=== PATIENT | male | born 1960 | race Caucasian/White ===

== ENCOUNTER 2016-12-18 15:22 | Observation (INO) | payer BC, OTHER ==
[~2016-12-18] VITALS: Ht 175.3 cm; Wt 95.0 kg
[2016-12-18 15:31] VITALS: Ht 175.3 cm; Wt 95.0 kg
[2016-12-18] MEDS ORDERED: ALPR0.5T PO (17:38)
--- NOTE | 2016-12-18 18:57 | ERA ---
ER Documentation Chief Complaint Date/Time DATE: 12/18/16 TIME: 18:56 Chief Complaint BIBA FOR COLOSTOMY STOMA PROBLEM,ABDOMINAL PAIN HPI Patient is a 56-year-old male who presents with leaking of stool and mild abdominal discomfort since last night after he advanced his catheter into his Kock pouch to drain stool, and pushed the catheter into far to the point that is not able to retrieve it. Patient denies fever, vomiting. ROS All systems reviewed and are negative except as per history of present illness. Medications Home Meds Reported Medications Alprazolam* (Xanax*) 0.5 Mg Tab, 0.5 MG PO DAILY Y for ANXIETY, TAB 12/18/16 Allergies Allergies: Coded Allergies: No Known Allergy (Unverified , 12/18/16) PMhx/Soc Past medical history: Ulcerative colitis Surgical history: Total colectomy and partial small bowel obstruction with formation of Kock pouch Social history: Denies tobacco or alcohol History of Surgery: Yes (KOCK POUCH ILEOSTOMY, CERVICAL SPINE SX) Anesthesia Reaction: No Hx Neurological Disorder: No Hx Respiratory Disorders: No Hx Cardiac Disorders: No Hx Psychiatric Problems: No Hx Miscellaneous Medical Probl: No Hx Alcohol Use: Yes Hx Substance Use: No Hx Tobacco Use: Yes Smoking Status: Current some day smoker FmHx Family History: No coronary disease, No diabetes Physical Exam Vitals Vital Signs Date Time Temp Pulse Resp B/P Pulse Ox O2 Delivery O2 Flow Rate FiO2 12/18/16 19:45 83 16 123/88 98 Room Air 12/18/16 15:31 98.2 112 18 126/94 98 Physical Exam Const: Alert, no acute distress Head: Atraumatic Eyes: Normal Conjunctiva, no pallor, no icterus ENT: Normal External Ears, Nose and Mouth. Moist mucous membranes Neck: Full range of motion..~ No meningismus. Resp: Clear to auscultation bilaterally no wheezes, no rales Cardio: Regular rate and rhythm, no murmurs Abd: Soft, non tender, non distended. Stoma in right lower quadrant actively slowly leaking yellow stool Skin: No petechiae or rashes Back: No midline or flank tenderness Ext: No cyanosis, or edema Neur: Awake and alert Psych: Normal Mood and Affect Result Diagram: 5/16/17 1920 5/16/17 1920 Results 24 hrs Laboratory Tests Test 12/18/16 19:20 White Blood Count 17.910^3/ul Red Blood Count 5.1710^6/ul Hemoglobin 15.2g/dl Hematocrit 43.7% Mean Corpuscular Volume 84.5fl Mean Corpuscular Hemoglobin 29.4pg Mean Corpuscular Hemoglobin Concent 34.8g/dl Red Cell Distribution Width 15.0% Platelet Count 56711^3/UL Mean Platelet Volume 9.8fl Neutrophils % 50.0% Lymphocytes % 36.0% Monocytes % 12.0% Eosinophils % 2.0% Neutrophils # 9.010^3/ul Lymphocytes # 6.410^3/ul Monocytes # 2.110^3/ul Eosinophils # 0.410^3/ul Prothrombin Time 12.4Sec Prothrombin Time Ratio 1.0 INR International Normalized Ratio 0.92 Activated Partial Thromboplast Time 24.3Sec Sodium Level 146mmol/L Potassium Level 4.0mmol/L Chloride Level 102mmol/L Carbon Dioxide Level 29mmol/L Anion Gap 19 Blood Urea Nitrogen 19mg/dl Creatinine 1.25mg/dl Glucose Level 73mg/dl Lactic Acid Level 1.6mmol/L Calcium Level 10.0mg/dl Current Medications Medications (Trade) Dose Ordered Sig/Frances Route PRN Reason Start Time Stop Time Status Last Admin Dose Admin IV Flush (NS 3 ml) 3 ml PER PROTOCOL IV 12/18/16 20:00 Ondansetron HCl (Zofran Inj) 4 mg Q6H PRN IV NAUSEA AND/OR VOMITING 12/18/16 20:00 Acetaminophen (Tylenol Tab) 650 mg Q6H PRN PO PAIN LEVEL 1-3 OR FEVER 12/18/16 20:00 Morphine Sulfate (morphine) 2 mg Q4H PRN IV SEVERE PAIN LEVEL 7-10 12/18/16 20:00 12/18/16 20:23 Docusate Sodium (Colace) 100 mg Q12H PRN PO CONSTIPATION 12/18/16 20:00 Magnesium Hydroxide (Milk Of Mag) 30 ml DAILY PRN PO CONSTIPATION 12/18/16 20:00 Bisacodyl (Dulcolax Supp) 10 mg DAILY PRN DE CONSTIPATION 12/18/16 20:00 Famotidine (Pepcid Iv) 20 mg Q12 IV 12/18/16 21:00 12/18/16 20:23 Alprazolam 0.5 mg 0.5 mg DAILY PRN PO ANXIETY 12/18/16 20:00 Sodium Chloride 500 ml @ 500 mls/hr Q1H ONCE IV 12/18/16 20:00 12/18/16 20:59 DC 12/18/16 20:23 Sodium Chloride (NS) 1,000 ml @ 100 mls/hr Q10H IV 12/18/16 20:00 12/18/16 20:24 Procedures/MDM MDM: Patient is a 56-year-old male with a intestinal pouch with stoma. He accidentally advanced the catheter into the stoma and is unable to pull it out. I am unable to see or feel the catheter inside the stoma on exam. I discussed the case with Dr. Jacobs, and he recommended GI consultation to scope the pouch and remove the catheter. I discussed the case with Dr. Mcknight, gastroenterology, who recommended admitting the patient and plans to scope the patient tomorrow. The patient has a benign abdominal exam and no evidence of bleeding from the stoma. I have very low suspicion for perforation of the stoma or other complication at this time. An attempt made to place a colostomy bag over the leaking stoma. Patient does have leukocytosis, but this is a nonspecific finding and not clearly related to the history. Departure Diagnosis: Primary Impression: Retained foreign body Additional Impression: Complications of intestinal pouch Condition: Stable JUAN FRANCISCO CAPUTO MD December 18, 2016 18:57 JUAN FRANCISCO CAPUTO MD December 18, 2016 18:57
[2016-12-18 19:29] LABS: ADD SCAN DIFF NO
[2016-12-18 19:32] LABS: ABNORMAL IP MESSAGE 1; HEMATOCRIT 43.7 % (42.0-52.0); HEMOGLOBIN 15.2 g/dl (14.0-18.0); MEAN CORPUSCULAR HEMOGLOBIN 29.4 pg (29.0-33.0); MEAN CORPUSCULAR HGB CONC 34.8 g/dl (32.0-37.0); MEAN CORPUSCULAR VOLUME 84.5 fl (82.0-101.0); MEAN PLATELET VOLUME 9.8 fl (7.4-10.4); PLATELET COUNT 338 10^3/UL (140-415); RED BLOOD COUNT 5.17 10^6/ul (4.70-6.10); WHITE BLOOD COUNT 17.9 10^3/ul (4.8-10.8)
[2016-12-18 19:49] LABS: INR 0.92; PROTIME 12.4 Sec (12.2-14.2)
[2016-12-18 19:52] LABS: CREATININE 1.25 mg/dl (0.61-1.24)
[2016-12-18 20:00] LABS: EOSINOPHILS # 0.4 10^3/ul (0.0-0.5); LYMPHOCYTES # 6.4 10^3/ul (0.8-2.9); MONOCYTE # 2.1 10^3/ul (0.3-0.9)
[2016-12-18] MEDS ORDERED: SOD CHLORIDE 0.9% 500 ML IV ONE (20:00)
[2016-12-18] MEDS ORDERED: ONDANSETRON 4 MG INJ IV PRN ×2 (20:00→21:30)
[2016-12-18] MEDS ORDERED: BISACODYL 10 MG SUPP PR PRN (20:00)
[2016-12-18] MEDS ORDERED: DOCUSATE SODIUM 100 MG CAP PO PRN (20:00)
[2016-12-18] MEDS ORDERED: ACETAMINOPHEN 325 MG TAB PO PRN ×2 (20:00→21:30)
[2016-12-18] MEDS ORDERED: NACL 0.9% 3 ML SYG IV SCH (20:00)
[2016-12-18] MEDS ORDERED: MAGNESIUM HYDROXIDE 30ML CUP PO PRN (20:00)
[2016-12-18] MEDS: FAMOTIDINE 20 MG INJ IV SCH (20:23)
[2016-12-18] MEDS: morphine 2 MG INJ IV PRN (20:23)
[2016-12-18] MEDS: SOD CHLORIDE 0.9% 1,000 ML IV SCH (20:24)
[2016-12-18 21:37] VITALS: TEMP 98.2
[2016-12-18 22:32] VITALS: BP 139/90; RESP 18
[2016-12-19] VITALS (12 sets, daily range): BP systolic 122–141; BP diastolic 68–94; PULSE 106–114; RESP 19–25
[2016-12-19] MEDS: ALPRAZOLAM 0.25 MG TAB PO PRN ×2 (00:18→21:24)
[2016-12-19 05:14] LABS: ADD SCAN DIFF NO
[2016-12-19 05:24] LABS: ABNORMAL IP MESSAGE 1; BASOPHIL # 0.1 10^3/ul (0.0-0.1); BASOPHILS % 0.2 % (0.0-2.0); EOSINOPHILS # 0.4 10^3/ul (0.0-0.5); HEMOGLOBIN 14.8 g/dl (14.0-18.0); LYMPHOCYTES % 18.7 % (15.0-51.0); MEAN CORPUSCULAR HEMOGLOBIN 29.4 pg (29.0-33.0); MEAN CORPUSCULAR HGB CONC 35.2 g/dl (32.0-37.0); MEAN CORPUSCULAR VOLUME 83.3 fl (82.0-101.0); MEAN PLATELET VOLUME 10.2 fl (7.4-10.4); MONOCYTE # 1.8 10^3/ul (0.3-0.9); MONOCYTES % 8.5 % (0.0-11.0); NEUTROPHIL # 14.8 10^3/ul (1.6-7.5); NEUTROPHILS % 70.2 % (39.0-77.0); PLATELET COUNT 365 10^3/UL (140-415); RED BLOOD COUNT 5.04 10^6/ul (4.70-6.10); RED CELL DISTRIBUTION WIDTH 14.9 % (11.5-14.5); WHITE BLOOD COUNT 21.1 10^3/ul (4.8-10.8)
[2016-12-19 05:34] LABS: MAGNESIUM 1.8 mg/dl (1.7-2.5); PHOSPHORUS 3.6 mg/dl (2.5-4.9)
[2016-12-19 05:42] LABS: ALBUMIN 4.1 g/dl (3.3-4.9); ALBUMIN/GLOBULIN RATIO 1.24; BILIRUBIN,INDIRECT 0.8 mg/dl (0-1.1); BILIRUBIN,TOTAL 0.8 mg/dl (0.2-1.3); CALCIUM 9.7 mg/dl (8.4-10.2); CREATININE 0.94 mg/dl (0.61-1.24); POTASSIUM 3.9 mmol/L (3.5-5.1); TOTAL PROTEIN 7.4 g/dl (6.1-8.1)
[2016-12-19] MEDS: SOD CHLORIDE 0.9% 1,000 ML IV SCH ×3 (05:59→23:41)
[2016-12-19] MEDS: morphine 2 MG INJ IV PRN ×2 (06:04→09:56)
[2016-12-19] MEDS ORDERED: LIDOCAINE 2% (SDV) 5 ML INJ ONE (07:00)
[2016-12-19] MEDS: FAMOTIDINE 20 MG INJ IV SCH ×2 (09:56→21:24)
[2016-12-19] MEDS ORDERED: BARIUM SULF 2% 450 ML BTL (BERRY SMOOTHIE) PO ONE (12:30)
--- NOTE | 2016-12-19 13:31 | RADRPT ---
PROCEDURE: CT abdomen and pelvis without contrast and with 3-D reconstructions CLINICAL INDICATION: leaking stool TECHNIQUE: CT scan of the abdomen and pelvis without contrast was performed on a multislice [facility]. 3-D sagittal and coronal reformatted images were obtained from the axial source images. DLP 980.57 mGycm CTDIvol 14.68 mGy COMPARISON: None. FINDINGS: The visualized lung bases demonstrate subsegmental bibasilar atelectasis. The liver is homogenous in attenuation. There are no focal liver lesions. There is no intrahepatic or extrahepatic biliary ductal dilatation. The gallbladder is within normal limits. The spleen, pancreas, and adrenal glands are within normal limits. The kidneys are symmetric and without focal lesions. There are no renal calculi. There is no obstruc tive uropathy. The patient is noted to be status post total colectomy with a right lower quadrant ileostomy. There are multiple dilated loops of small bowel with gradually increased dilatation towards the distal il eum which measures up to 8.5 cm in diameter. A catheter or tubing is noted in the dilated distal il eum approximately 5 cm from the ileostomy site. There is a round 3 cm focus of mesenteric fat which is noted to herniate extrinsically into the distal ileum, just proximal to the ileostomy which may be narrowing the outflow. Surrounding adjacent surgical clips are noted. The aorta is within normal limits. There are no enlarged mesenteric, periaortic, or retroperitoneal lymph nodes. The bladder is within normal limits. There is no free air. There is no free fluid. There are no enlarged intrapelvic or inguinal lymph nodes. A midline abdominal wound is noted. IMPRESSION: Status post total colectomy with a right lower quadrant ileostomy. There is a catheter or tubing wi thin the distal ileum as well as a 3 cm focus of mesenteric fat which is extrinsically pushing into the dilated distal ileum, both of which may be causing outlet obstruction. Markedly dilated loops of bowel measuring up to 8.5 cm in the distal ileum without a transition poin t. No evidence of bowel perforation. These findings were discussed with Debbie Vila over the phone on 12/19/2016 at 1:31 PM . RPTAT: EE Jean Roberts Physician Date Time Electronically viewed and signed by Jean Roberts Physician on 12/19/2016 13:31 RA/
--- NOTE | 2016-12-19 13:34 | CONS ---
Date/Time of Note Date/Time of Note DATE: 12/19/16 TIME: 13:19 Assessment/Plan Assessment/Plan Additional Assessment/Plan Assessment * Foreign body (catheter) ileostomy * History of Proctocolectomy Kochs ileostomy Ulcerative colitis Plan * CT abdomen /pelvis * schedule for removal of foreign body risks and benefit explained to patient agreed with planned procedure * NPO Consultation Date/Type/Reason Admit Date/Time December 18, 2016 at 21:05 Date of Consultation: December 19, 2016 Type of Consultation: Gastroenterology Reason for Consultation foreign body per ileostomy Referring Provider: AVA BURROUGHS Hx of Present Illness 56 year old male with past medical history of ulcerative colitis,underwent proctocolectomy with Kochs pouch ileostomy 35 years ago,spinal surgery who came to our clinic with chief complaint of retained foreign body catheter 1 day duration.Patient has been draining his ileostomy through catheter when he accidentally pushed the catheter too far and unable to retrieve it.No associated nausea , vomiting of fever but claimed of vague abdominal pain. Emergency room course ,patient has leukocytosis WBC 17.9,Hemoglobin 15.2.hematocrit 43.7.we are awaiting CT abdomen results Constitutional: no complaints Eyes: no complaints ENT: no complaints Respiratory: no complaints Cardiovascular: no complaints Gastrointestinal: flatus, nausea, pain Genitourinary: no complaints Musculoskeletal: no complaints Skin: no complaints Neurologic: no complaints Endocrine: no complaints Lymphatic: no complaints Psychological: nl mood/affect, no complaints Immunologic: no complaints Past Medical History Medical History: other (ulceratve colitis) Past Surgical History Past Surgical Hx: other (proctocolectomy with pouch ileostomy) Family History Significant Family History: no pertinent family hx Social History Smoking Status: Light tobacco smoker Drug Use: other (methaamphethamine) Exam/Review of Systems Vital Signs Vitals Vital Signs Date Time Temp Pulse Resp B/P Pulse Ox O2 Delivery O2 Flow Rate FiO2 12/19/16 07:00 96.9 100 19 125/83 93 12/18/16 22:32 Room Air Intake and Output 12/18/16 12/18/16 12/19/16 15:00 23:00 07:00 Intake Total 1400 ml Output Total 700 ml Balance 700 ml Exam Constitutional: alert, oriented, well developed Head: atraumatic, normocephalic Eyes: PERRL, nl lids, nl sclera ENMT: nl nasal mucosa & septum Neck: non-tender, supple Respiratory: clear to auscultation, normal air movement Cardiovascular: nl pulses, regular rate and rhythm Gastrointestinal: bowel sounds, nl liver, spleen, soft, tender Musculoskeletal: nl extremities to inspection, nl gait and stance Extremities: normal pulses Neurological: ENGINEERING ANALYST II-XII intact, nl mental status, nl speech, nl strength Skin: nl turgor, No rash or lesions Lymph: nl lymph nodes Results Result Diagram: 12/19/16 0435 12/19/16 0435 Results 24 hrs Laboratory Tests Test 12/18/16 19:20 12/19/16 04:35 White Blood Count 17.9 H 21.1 H Red Blood Count 5.17 5.04 Hemoglobin 15.2 14.8 Hematocrit 43.7 42.0 Mean Corpuscular Volume 84.5 83.3 Mean Corpuscular Hemoglobin 29.4 29.4 Mean Corpuscular Hemoglobin Concent 34.8 35.2 Red Cell Distribution Width 15.0 H 14.9 H Platelet Count 338 365 Mean Platelet Volume 9.8 10.2 Neutrophils % 50.0 70.2 Lymphocytes % 36.0 18.7 Monocytes % 12.0 H 8.5 Eosinophils % 2.0 2.0 Neutrophils # 9.0 H 14.8 H Lymphocytes # 6.4 H 4.0 H Monocytes # 2.1 H 1.8 H Eosinophils # 0.4 0.4 Prothrombin Time 12.4 Prothrombin Time Ratio 1.0 INR International Normalized Ratio 0.92 Activated Partial Thromboplast Time 24.3 L Sodium Level 146 H 142 Potassium Level 4.0 3.9 Chloride Level 102 107 Carbon Dioxide Level 29 24 Anion Gap 19 H 15 Blood Urea Nitrogen 19 14 Creatinine 1.25 H 0.94 Glucose Level 73 119 # Lactic Acid Level 1.6 Calcium Level 10.0 9.7 Basophils % 0.2 Nucleated Red Blood Cells % 0.0 Basophils # 0.1 Nucleated Red Blood Cells # 0.0 Phosphorus Level 3.6 Magnesium Level 1.8 Total Bilirubin 0.8 Direct Bilirubin 0.00 Indirect Bilirubin 0.8 Aspartate Amino Transf (AST/SGOT) 31 Alanine Aminotransferase (ALT/SGPT) 40 Alkaline Phosphatase 67 Total Protein 7.4 Albumin 4.1 Globulin 3.30 H Albumin/Globulin Ratio 1.24 Medications Medications Current Medications Ondansetron HCl (Zofran Inj) 4 mg Q6H PRN IV NAUSEA AND/OR VOMITING Last administered on 12/19/16 05:58; Admin Dose 4 MG; Start 12/18/16 at 20:00 Acetaminophen (Tylenol Tab) 650 mg Q6H PRN PO PAIN LEVEL 1-3 OR FEVER; Start at 20:00 Morphine Sulfate (morphine) 2 mg Q4H PRN IV SEVERE PAIN LEVEL 7-10 Last administered on 12/19/16 09:56; Admin Dose 2 MG; Start 12/18/16 at 20:00 Docusate Sodium (Colace) 100 mg Q12H PRN PO CONSTIPATION; Start 12/18/16 at 20: 00 Magnesium Hydroxide (Milk Of Mag) 30 ml DAILY PRN PO CONSTIPATION; Start at 20:00 Bisacodyl (Dulcolax Supp) 10 mg DAILY PRN CA CONSTIPATION; Start 12/18/16 at 20 :00 Famotidine (Pepcid Iv) 20 mg Q12 IV Last administered on 12/19/16 09:56; Admin Dose 20 MG; Start 12/18/16 at 21:00 Alprazolam 0.5 mg 0.5 mg DAILY PRN PO ANXIETY Last administered on 12/19/16 00 :18; Admin Dose 0.5 MG; Start 12/18/16 at 20:00 Sodium Chloride (NS) 1,000 ml @ 100 mls/hr Q10H IV Last administered on 08:15; Admin Dose 100 MLS/HR; Start 12/18/16 at 20:00 Simethicone 160 mg 160 mg Q6H PRN PO DISTENSION/GAS/BLOATING Last administered on 12/19/16 00:27; Admin Dose 160 MG; Start 12/19/16 at 00:20 Piperacillin Sod/ Tazobactam Sod (Zosyn 3.375gm/ 100 ml (Pmx)) 100 ml @ 200 mls /hr Q8 IVPB ; Start 12/19/16 at 14:00 DAYO DESAI MD December 19, 2016 13:29
[2016-12-19] MEDS: PIPER-TAZO 3.375 GM IV (PMX) 100 ML IVPB SCH ×2 (13:58→21:27)
--- NOTE | 2016-12-19 14:16 | HP ---
DATE OF ADMISSION: 12/18/2016 PRIMARY CARE PHYSICIAN: Unknown. PREVIOUS SURGEON: Unknown. CHIEF COMPLAINT ON ADMISSION: Abdominal pain and also status post catheter manipulation of his Kock pouch. HISTORY OF PRESENT ILLNESS: This is a 56-year-old male who apparently with history of ulcerative co litis status post partial colectomy almost 25 to 30 years ago. At that point he had a Aldana pouch pe rformed. Apparently, the patient used a catheter to drain the stool pouch. Two days ago, he may davila ve pushed the catheter too far in. He has not been able to retrieve it. He did not feel any stabbi ng at that time, but he is not sure if he has not caused any injury. He has been having abdominal p ain over the past 2 days and stool leaking around the patch. Currently, a colostomy bag is placed. He is noted to have some erythema around pouch site. He reports that he has been having some diaph oresis while inpatient and also with nausea while inpatient, but he was not having it outpatient. H e denies fevers as an outpatient. In the emergency department, he was noted to have some leaking stool around it which prompted for th e colostomy bag to be placed. His white count on admission was 17,000 in the setting of dehydration . He has been rehydrated, but the white count this morning is 21,000. According to the ER zay frank, he did discuss the case with both general surgery and GI, and after discussion, GI is actually go ing to take the patient in order to retrieve this catheter in the pouch. The patient currently is f airly uncomfortable. Therefore, a CAT scan of the abdomen and pelvis is pending. Dr. Mcknight will b e evaluating the patient. I will start him on Zosyn at this point for possible cellulitis or infect ion given the elevated white count that goes along with it. The patient is on IV fluids. Of note, I am suspecting the patient may be a methamphetamine user. He did at least at first deny any drug u se, then when confronted by the nurse he admitted he used methamphetamine recreationally last a greg h ago, but at this point, I am suspicious that he may have been using it a little earlier than that, therefore he will be monitored for also withdrawal. ALLERGIES: NO KNOWN ALLERGIES. PAST MEDICAL HISTORY: History of ulcerative colitis status post partial colectomy with the Aldana darrius ch creation. PAST SURGICAL HISTORY: 1. The patient is status post colectomy and this Aldana pouch creation. 2. Apparently 10 years ago, he had a similar episode where he pushed the catheter too far and had t o be retrieved by surgery. SOCIAL HISTORY: The patient does not smoke or drink alcohol, but he is likely a methamphetamine use r and is downplaying it. OUTPATIENT MEDICATIONS: Xanax 0.5 mg p.o. daily p.r.n. anxiety. REVIEW OF SYSTEMS: As per HPI. PHYSICAL EXAMINATION: VITAL SIGNS: Temperature is 96.9, heart rate of 100, respiratory rate of 19, blood pressure 125/83. The patient is saturating 93% to 99% on room air. GENERAL: He is alert and oriented x4. He is in no acute distress. He seems flushed, however. HEENT: Pupils are equally round and reactive to light. Extraocular muscles are intact. Anicteric sclerae. NECK: No JVD, no thyromegaly noted. HEART: Regular rate and rhythm. No murmur, rubs, or gallops. LUNGS: Clear to auscultation bilaterally. ABDOMEN: He does have a pouch on his right lower quadrant area with a colostomy bag around it. He has some erythema around the pouch area, but there is no leaky stools that I can see currently. He complains of some abdominal discomfort and pain. CAT scan of the abdomen and pelvis is pending. EXTREMITIES: No edema, clubbing or cyanosis. NEUROLOGIC: Grossly intact. LABORATORY DATA: White blood cell count is 21,000 this morning, hemoglobin 14.9, hematocrit 42.0, p latelet count of 365. Chemistry with a sodium of 142, potassium 3.9, chloride 107, bicarbonate 24, BUN 14, creatinine 0.94, glucose of 119. Lactic acid 1.6, calcium 9.7, phosphorus 3.6, magnesium 1. 8. Liver function testing within normal. INR is 0.92, PT 12.4, PTT 24.3. RADIOLOGICAL DATA: CAT scan of the abdomen and pelvis is pending. ASSESSMENT AND PLAN: This is a 56-year-old male with: 1. History of ulcerative colitis, status post colectomy with Aldana pouch creation 30 years ago and s tatus post previous episode of catheter pushed inside that had to be retrieved. He is presented aga in with another similar episode today and the patient at this point will have surgery and GI will se e him for possible colonoscopy for retrieval of the catheter hopefully. Given his elevated white bl ood cell count, we will give him a dose of Zosyn today. 2. Suspected methamphetamine use. I will keep him on benzodiazepines as needed. Monitor his blood pressure. Continue IV fluids, especially while n.p.o. DISPOSITION: 1. Deep venous thrombosis prophylaxis with sequential compression devices. GI prophylaxis with Pep jessica. 2. GI consult pending and follow up on CAT scan results and general surgery on standby also if need ed. Dictated By: AVA BOB/BENJAMIN Conf#: [id number] DID#: [id number]
[2016-12-19] MEDS ORDERED: PROPOFOL 20 ML ONE (17:08)
[2016-12-19] MEDS ORDERED: MIDAZOLAM 1 MG/ML 2 ML INJ ONE ×2 (17:08→17:24)
[2016-12-19] MEDS ORDERED: FENTAnyl 50 MCG/ML VIAL ONE (17:09)
--- NOTE | 2016-12-19 17:37 | EN ---
Date/Time of Note Date/Time of Note DATE: 12/19/16 TIME: 17:36 ER Progress Note Ultrasound-guided IV insertion note: Indication, [facility] unable to obtain vascular access. Area was cleaned with alcohol. Ultrasound guidance was used to easily introduce an 18-gauge extended Angiocath into the left basilic vein. There was good blood flow at the line flushed well. Patient tolerated procedure with her no complications. Images were saved in chart. MATTHEW GARVEY DO December 19, 2016 17:37
--- NOTE | 2016-12-19 18:24 | GILP ---
DATE OF PROCEDURE: 12/19/2016 PROCEDURE PERFORMED: Ileoscopy with foreign body removal. BRIEF HISTORY AND INDICATIONS: The patient has accidentally lost the ileostomy drainage catheter an d is unable to recover it. The ileostomy drainage catheter is in the distal ileum by CT and is lead ing to some degree of obstruction. PREMEDICATION: Monitored anesthesia care by anesthesiologist. SURGEON: Roxanna Calhoun MD. DESCRIPTION OF PROCEDURE: After informed consent with the patient understanding the procedure, its potential risks and complications as well as alternatives and after all pertinent questions were an swered to his satisfaction, the patient was placed in supine position. The patient received sedati on. Once the sedative effect was achieved, the ileostomy opening was dilated with the pinky finger and then we introduced an upper endoscope with some difficulty as there is significant narrowing in the distal portion of the ileostomy. We were able to advance into the pouch and identified the cath eter. We were able to secure the tip of the catheter with a grasping forceps, after some maneuverin g, we were able to retrieve it without difficulty. No evidence of injury or complications present. IMPRESSION: Narrowed distal ileostomy. Foreign body in the ileostomy pouch removed without difficu lty. PLAN: The patient will be restarted on diet and his usual management of ileostomy, encourage voidin g through the drainage catheter to the point of losing control. Dictated By: DAYO DESAI MS/BENJAMIN Conf#: [id number] DID#: [id number]
[2016-12-20 05:06] LABS: ADD SCAN DIFF NO
[2016-12-20 05:09] LABS: ABNORMAL IP MESSAGE 1; HEMATOCRIT 42.3 % (42.0-52.0); HEMOGLOBIN 14.9 g/dl (14.0-18.0); MEAN CORPUSCULAR HEMOGLOBIN 29.6 pg (29.0-33.0); MEAN CORPUSCULAR HGB CONC 35.2 g/dl (32.0-37.0); MEAN CORPUSCULAR VOLUME 83.9 fl (82.0-101.0); PLATELET COUNT 389 10^3/UL (140-415); RED BLOOD COUNT 5.04 10^6/ul (4.70-6.10); RED CELL DISTRIBUTION WIDTH 14.6 % (11.5-14.5); WHITE BLOOD COUNT 8.9 10^3/ul (4.8-10.8)
[2016-12-20 05:25] LABS: MAGNESIUM 1.6 mg/dl (1.7-2.5); PHOSPHORUS 3.3 mg/dl (2.5-4.9)
[2016-12-20 05:29] LABS: CALCIUM 9.3 mg/dl (8.4-10.2); CREATININE 1.11 mg/dl (0.61-1.24); POTASSIUM 4.1 mmol/L (3.5-5.1)
[2016-12-20] MEDS: PIPER-TAZO 3.375 GM IV (PMX) 100 ML IVPB SCH ×2 (05:36→13:24)
[2016-12-20 07:40] LABS: EOSINOPHILS # 0.2 10^3/ul (0.0-0.5); LYMPHOCYTES # 3.6 10^3/ul (0.8-2.9); MONOCYTE # 1.2 10^3/ul (0.3-0.9); NEUTROPHIL # 2.4 10^3/ul (1.6-7.5)
[2016-12-20] MEDS: FAMOTIDINE 20 MG INJ IV SCH (08:21)
[2016-12-20 08:25] VITALS: BP 141/88; PULSE 113; RESP 18
[2016-12-20] MEDS: SOD CHLORIDE 0.9% 1,000 ML IV SCH (11:24)
[2016-12-20] MEDS ORDERED: MAGNESIUM SULFATE 2 GM/50 ML 50 ML IVPB ONE (13:00)
--- NOTE | 2016-12-20 14:26 | PN ---
Date/Time of Note Date/Time of Note DATE: 12/20/16 TIME: 14:21 Assessment/Plan VTE Prophylaxis VTE Prophylaxis Intervention: SCD's Lines/Catheters IV Catheter Type (from Nrsg): Peripheral IV Assessment/Plan Assessment/Plan 56-year-old male with: 1. History of ulcerative colitis, status post colectomy with Aldana pouch creation 30 years ago and status post previous episode of catheter pushed inside that had to be retrieved. S/p retrieval catheter and WBC back to normal No Abdo pain and tolerating po D/c home today 2. Suspected methamphetamine use. Patient stable D/c home and he claims he will not use again DISPOSITION: D/c home today. Subjective 24 Hr Interval Summary Free Text/Dictation Patient back to baseline and tolerating po D/c home Exam/Review of Systems Vital Signs Vitals Vital Signs Date Time Temp Pulse Resp B/P Pulse Ox O2 Delivery O2 Flow Rate FiO2 12/20/16 08:25 97.3 113 18 141/88 98 Room Air Intake and Output 12/19/16 12/19/16 12/20/16 15:00 23:00 07:00 Intake Total 1000 ml 1350 ml Balance 1000 ml 1350 ml Exam Constitutional: alert, oriented, well developed Respiratory: clear to auscultation, normal air movement Cardiovascular: nl pulses, regular rate and rhythm Gastrointestinal: non-tender, other (some stool around the pouch but o/w no signs of infection anymore ), soft Musculoskeletal: nl extremities to inspection, nl gait and stance Extremities: normal pulses Neurological: OXYACETYLENE WELDER II-XII intact, nl mental status, nl speech, nl strength Results Result Diagram: 12/20/16 0435 12/20/16 0435 Results 24 hrs Laboratory Tests Test 12/20/16 04:35 White Blood Count 8.9 # Red Blood Count 5.04 Hemoglobin 14.9 Hematocrit 42.3 Mean Corpuscular Volume 83.9 Mean Corpuscular Hemoglobin 29.6 Mean Corpuscular Hemoglobin Concent 35.2 Red Cell Distribution Width 14.6 H Platelet Count 389 Mean Platelet Volume 10.0 Neutrophils % 27.0 L Band Neutrophils % 18.0 H Lymphocytes % 40.0 Monocytes % 13.0 H Eosinophils % 2.0 Neutrophils # 2.4 Lymphocytes # 3.6 H Monocytes # 1.2 H Eosinophils # 0.2 Sodium Level 143 Potassium Level 4.1 Chloride Level 110 Carbon Dioxide Level 23 Anion Gap 14 Blood Urea Nitrogen 16 Creatinine 1.11 Glucose Level 147 Calcium Level 9.3 Phosphorus Level 3.3 Magnesium Level 1.6 L Medications Medications Current Medications Ondansetron HCl (Zofran Inj) 4 mg Q6H PRN IV NAUSEA AND/OR VOMITING Last administered on 12/19/16 05:58; Admin Dose 4 MG; Start 12/18/16 at 20:00 Acetaminophen (Tylenol Tab) 650 mg Q6H PRN PO PAIN LEVEL 1-3 OR FEVER; Start at 20:00 Morphine Sulfate (morphine) 2 mg Q4H PRN IV SEVERE PAIN LEVEL 7-10 Last administered on 12/19/16 09:56; Admin Dose 2 MG; Start 12/18/16 at 20:00 Docusate Sodium (Colace) 100 mg Q12H PRN PO CONSTIPATION; Start 12/18/16 at 20: 00 Magnesium Hydroxide (Milk Of Mag) 30 ml DAILY PRN PO CONSTIPATION; Start at 20:00 Bisacodyl (Dulcolax Supp) 10 mg DAILY PRN ME CONSTIPATION; Start 12/18/16 at 20 :00 Famotidine (Pepcid Iv) 20 mg Q12 IV Last administered on 12/20/16 08:21; Admin Dose 20 MG; Start 12/18/16 at 21:00 Alprazolam 0.5 mg 0.5 mg DAILY PRN PO ANXIETY Last administered on 12/19/16 21 :24; Admin Dose 0.5 MG; Start 12/18/16 at 20:00 Sodium Chloride (NS) 1,000 ml @ 100 mls/hr Q10H IV Last administered on 11:24; Admin Dose 100 MLS/HR; Start 12/18/16 at 20:00 Simethicone 160 mg 160 mg Q6H PRN PO DISTENSION/GAS/BLOATING Last administered on 12/19/16 00:27; Admin Dose 160 MG; Start 12/19/16 at 00:20 Piperacillin Sod/ Tazobactam Sod 100 ml @ 200 mls/hr Q8 IVPB Last administered on 12/20/16 13:24; Admin Dose 200 MLS/HR; Start 12/19/16 at 14:00 Magnesium Sulfate (Magnesium Sulfate 2 Gm/50 ml) 50 ml @ 25 mls/hr ONCE ONCE IVPB Last administered on 12/20/16t 14:00; Admin Dose 25 MLS/HR; Start at 13:00; Stop 12/20/16 at 14:59 AVA BURROUGHS December 20, 2016 14:26
--- NOTE | 2016-12-20 14:27 | PDOCDIS ---
Discharge Instructions CONDITION Patient Condition: Fair HOME CARE INSTRUCTIONS: Diet Instructions: Regular ACTIVITY: Activity Restrictions: No Restrictions FOLLOW UP/APPOINTMENTS Appointments follow up with PCP within 1 week AVA BURROUGHS December 20, 2016 14:27
--- NOTE | 2016-12-20 15:24 | PN ---
Date/Time of Note Date/Time of Note DATE: 12/20/16 TIME: 15:21 Assessment/Plan VTE Prophylaxis VTE Prophylaxis Intervention: ambulation Lines/Catheters IV Catheter Type (from Nrsg): Peripheral IV Assessment/Plan Assessment/Plan Assessment * Foreign body (catheter) ileostomy S/P removal of catheter through ileostomy * History of Proctocolectomy Kochs ileostomy Ulcerative colitis Plan * stable for outpatient management Subjective 24 Hr Interval Summary Free Text/Dictation * Course reviewed with RN * patient seen and examined * no abdominal pain * S/P removal of foreign body catheter through ileostomy Exam/Review of Systems Vital Signs Vitals Vital Signs Date Time Temp Pulse Resp B/P Pulse Ox O2 Delivery O2 Flow Rate FiO2 12/20/16 08:25 97.3 113 18 141/88 98 Room Air Intake and Output 12/19/16 12/19/16 12/20/16 15:00 23:00 07:00 Intake Total 1000 ml 1350 ml Balance 1000 ml 1350 ml Exam Constitutional: alert, oriented Neck: non-tender, supple Cardiovascular: regular rate and rhythm Gastrointestinal: nl liver, spleen, non-tender, soft Musculoskeletal: nl extremities to inspection, nl gait and stance Extremities: normal pulses Results Result Diagram: 12/20/16 0435 12/20/16 0435 Results 24 hrs Laboratory Tests Test 12/20/16 04:35 White Blood Count 8.9 # Red Blood Count 5.04 Hemoglobin 14.9 Hematocrit 42.3 Mean Corpuscular Volume 83.9 Mean Corpuscular Hemoglobin 29.6 Mean Corpuscular Hemoglobin Concent 35.2 Red Cell Distribution Width 14.6 H Platelet Count 389 Mean Platelet Volume 10.0 Neutrophils % 27.0 L Band Neutrophils % 18.0 H Lymphocytes % 40.0 Monocytes % 13.0 H Eosinophils % 2.0 Neutrophils # 2.4 Lymphocytes # 3.6 H Monocytes # 1.2 H Eosinophils # 0.2 Sodium Level 143 Potassium Level 4.1 Chloride Level 110 Carbon Dioxide Level 23 Anion Gap 14 Blood Urea Nitrogen 16 Creatinine 1.11 Glucose Level 147 Calcium Level 9.3 Phosphorus Level 3.3 Magnesium Level 1.6 L Medications Medications Current Medications Ondansetron HCl (Zofran Inj) 4 mg Q6H PRN IV NAUSEA AND/OR VOMITING Last administered on 12/19/16t 05:58; Admin Dose 4 MG; Start 12/18/16 at 20:00 Acetaminophen (Tylenol Tab) 650 mg Q6H PRN PO PAIN LEVEL 1-3 OR FEVER; Start at 20:00 Morphine Sulfate (morphine) 2 mg Q4H PRN IV SEVERE PAIN LEVEL 7-10 Last administered on 12/19/16 09:56; Admin Dose 2 MG; Start 12/18/16 at 20:00 Docusate Sodium (Colace) 100 mg Q12H PRN PO CONSTIPATION; Start 12/18/16 at 20: 00 Magnesium Hydroxide (Milk Of Mag) 30 ml DAILY PRN PO CONSTIPATION; Start at 20:00 Bisacodyl (Dulcolax Supp) 10 mg DAILY PRN CO CONSTIPATION; Start 12/18/16 at 20 :00 Famotidine (Pepcid Iv) 20 mg Q12 IV Last administered on 12/20/16 08:21; Admin Dose 20 MG; Start 12/18/16 at 21:00 Alprazolam 0.5 mg 0.5 mg DAILY PRN PO ANXIETY Last administered on 12/19/16 21 :24; Admin Dose 0.5 MG; Start 12/18/16 at 20:00 Sodium Chloride (NS) 1,000 ml @ 100 mls/hr Q10H IV Last administered on 11:24; Admin Dose 100 MLS/HR; Start 12/18/16 at 20:00 Simethicone 160 mg 160 mg Q6H PRN PO DISTENSION/GAS/BLOATING Last administered on 12/19/16 00:27; Admin Dose 160 MG; Start 12/19/16 at 00:20 Piperacillin Sod/ Tazobactam Sod (Zosyn 3.375gm/ 100 ml (Pmx)) 100 ml @ 200 mls /hr Q8 IVPB Last administered on 12/20/16 13:24; Admin Dose 200 MLS/HR; Start 12/19/16 at 14:00 DAYO DESAI MD December 20, 2016 15:24
== END 2016-12-20 20:15 | disposition home or self-care (01) ==
LOC: E/R 15:22 → MS1 21:05
PROVIDERS: ADMIT Internal Medicine; ATTEND Internal Medicine
DX: K94.19 Other complications of enterostomy (principal); F17.200 Nicotine dependence, unspecified, uncomplicated; Z87.19 Personal history of other diseases of the digestive system; Y83.3 Surgical operation with formation of external stoma as the cause of abnormal reaction of the patient, or of later complication, without mention of misadventure at the time of the procedure
CPT/HCPCS: 44799; 74176; 80048; 80053; 83605; 83735; 84100; 85025; 85610; 85730; 96361; 96365; 96366; 96374; 96375; 96376; 99217; 99285; G0378; J2250; J2270; J2405; J2543; J3010; J3475; J7030; J7040